=== PATIENT | male | born 1945 | race Caucasian/White ===

== ENCOUNTER 2018-04-01 10:36 | Observation (INO) ==
[2018-04-01] MEDS ORDERED: GADOTERIDOL INJ 20 ML/VIAL IV ONE (10:37)
[2018-04-01] MEDS ORDERED: 0.9 % SODIUM CHLORIDE 1,000 ML IV ONE ×2 (11:07→12:31)
--- NOTE | 2018-04-01 11:52 | XRay Report ---
HISTORY: Dizziness and nausea FINDINGS: The lungs are clear. Heart size is normal. There has been prior coronary artery bypass surgery. No congestive heart failure or pleural effusion are present. There has been little change from prior exam done on 11/02/09 except for the sternotomy IMPRESSION: Normal chest. Interpreted and Authenticated by: Malik Shah 04/01/18
[2018-04-01 12:00] LABS: Basophils # (Auto) 0 K/mcL (0.0-0.3); Basophils % (Auto) 0.5 % (0.0-2.0); Eosinophils # (Auto) 0.2 K/mcL (0.0-0.7); Eosinophils % (Auto) 3.1 % (0.0-7.0); Lymphocytes # (Auto) 2.2 K/mcL (1.5-4.8); Lymphocytes % (Auto) 28.2 % (15.5-49.0); Mean Cell Volume 91.4 fL (80.0-100.0); Mean Corpuscular HGB Conc 33.3 g/dL (31.0-36.0); Mean Corpuscular Hemoglobin 30.4 pg (26.0-34.0); Monocytes # (Auto) 0.7 K/mcL (0.1-0.9); Monocytes % (Auto) 9.2 % (1.0-12.0); Platelet Count 212 K/mcL (140-440); Red Cell Distribution Width 13.9 % (11.5-14.5)
[2018-04-01 12:18] LABS: ALT/SGPT 22 U/l (0-40); Albumin 4.4 gm/dL (3.2-5.2); Albumin/Globulin Ratio 1.3 (1.0-2.3); Alkaline Phosphatase 68 U/L (39-117); Blood Urea Nitrogen 27 mg/dl (8-23)
--- NOTE | 2018-04-01 14:30 | Cat Scan Report ---
History: New onset dizziness and nausea TECHNIQUE: The brain was imaged without contrast at 2.5 mm intervals. The radiation exposure was limited using dose reduction technology. FINDINGS: There are small old lacunar infarcts in the lara radiata bilaterally at the top of the putamen. This is more apparent on the right side than left. Both of these have become more obvious since the prior head CT done on 06/26/17. There are ischemic changes at both sites on the prior study.. No acute infarct is detected. There is no hemorrhage or mass effect. Mild arthritis atrophy is seen both above and below the tentorium. The ventricles are prominent but proportionate to the atrophy. Aside from the mild cerebellar atrophy, posterior fossa is normal. There is opacification of a few ethmoid air cells due to sinusitis. The mastoids are relatively hypoplastic but normally aerated. IMPRESSION: Old lacunar infarcts along the top of the basal ganglia bilaterally Mild atrophy No acute abnormality to explain the patient's symptoms Interpreted and Authenticated by: Malik Shah 04/01/18
[2018-04-01] MEDS ORDERED: 0.9 % SODIUM CHLORIDE 1,000 ML IV SCH (15:15)
--- NOTE | 2018-04-01 15:19 | Emergency Department Note ---
Dizziness HPI - General Chief Complaint: Dizziness Stated Complaint: Dizziness, nausea Time Seen by Provider: 04/01/18 11:06 Source: patient Mode of arrival: ambulatory Limitations: no limitations - History of Present Illness HPI Narrative: The patient is a pleasant 72-year-old male who presents today with complaints of feeling off balance. He reports that it began when he woke up this morning and got out of bed. He did not fall then needed to grab onto things to stay upright. He states that he felt this very couple of days ago as well but it went away on its own. He denies any fevers or chills. Endorses some nausea but no vomiting. Denies any dizziness or vision changes. Denies vertigo-like symptoms. He does state that he had a viral illness in the last couple of weeks and he currently has a resolving shingles infection on his left hand. He had supper last night and kept it down without issue. He denies any shortness of breath or chest pain. No history of stroke. The patient does have a history of hypothyroidism, diabetes, double bypass surgery with 2 heart attacks. - Related Data Allergies Allergy/AdvReac Type Severity Reaction Status Date / Time atenolol [ATENOLOL] Allergy Unknown SHORTNESS Verified 04/01/18 11:47 OF BREATHE Past Medical History - Social History smoking status: Former smoker Physical Exam Limitations: no limitations General appearance: alert, in no apparent distress Head: atraumatic, normocephalic Eye: Present: normal appearance ENT: normal exam, mucous membranes moist, TM's normal bilaterally Neck: Present: normal inspection Chest: Present: normal inspection Respiratory: Present: normal lung sounds bilaterally Cardiovascular: Present: regular rate, normal rhythm Abdominal: Present: soft, normal bowel sounds Neurological: Present: alert, oriented X3 Patient oriented to: Present: person, place, time Speech: Present: fluid speech Cranial nerves: EOM function (II, III, IV, ): Normal, facial sensation (V): Normal, facial palsy (VII): Normal, gag reflex (IX): Normal, spinal accessory function (XI): Normal, tongue deviation (XII): Normal Cerebellar function: ataxic gait Motor strength - LUE: 5/5 Motor strength - RUE: 5/5 Motor strength - LLE: 5/5 Motor strength - RLE: 5/5 Coma Scale Motor Response: Obeys Commands Coma Scale Verbal Response: Oriented Psychiatric: Present: normal affect, normal mood Skin: Present: warm, dry Course Course Narrative: Workup with blood work initially showed an elevated BUN/creatinine slightly elevated creatinine at 1.5. He was given fluid resuscitation and stated that he felt slightly better but upon a walking trial was unable to walk without support. - Reevaluation(s) Reevaluation #1: Patient had a CT head that returned negative for any acute intracranial cause of his symptoms. Spoke to the hospitalist who recommended further imaging including a CT angiogram head and neck. We were unable to perform this due to his creatinine level. Proceeded with MRI head, MRA head and MR I neck with and without. Vital Signs Temperature 96.9 F L 04/01/18 10:38 Pulse Rate 71 04/01/18 10:38 Respiratory Rate 16 04/01/18 10:38 Blood Pressure 149/86 04/01/18 10:38 Pulse Oximetry (%) 97 04/01/18 10:38 Temperature 96.9 F L 04/01/18 10:38 Pulse Rate 69 04/01/18 17:04 Respiratory Rate 14 04/01/18 17:04 Blood Pressure 99/60 04/01/18 17:04 Pulse Oximetry (%) 97 04/01/18 17:04 Dizziness - MDM Narrative Medical decision making narrative: Patient has had an extensive workup cheerleading for infectious causes for his symptoms, neurologic or structural issues. His brain MRI and MRAs were negative for sign of stroke. He does have right-sided mastoiditis seen on imaging but the patient is totally asymptomatic in the room. He is still unable to walk without support but otherwise denies any pain or other concerns. I did speak to the hospitalist who graciously agreed to admit the patient for observation and continued workup. - Lab Data Lab results reviewed: Yes I reviewed the patient's lab results. Result diagrams: 04/01/18 11:35 04/01/18 11:35 Lab Results 04/01/18 04/01/18 04/01/18 Range/Units 11:35 11:35 15:00 WBC 7.7 (4.5-11.0) K/mcL RBC 4.90 (4.50-5.90) M/mcL Hgb 14.9 (13.5-16.5) g/dL Hct 44.8 (41.0-55.0) % POC Hct 38.0 L (41.0-55.0) % MCV 91.4 (80.0-100.0) fL MCH 30.4 (26.0-34.0) pg MCHC 33.3 (31.0-36.0) g/dL RDW 13.9 (11.5-14.5) % Plt Count 212 (140-440) K/mcL MPV 8.9 (7.4-10.4) fL Gran % 59.0 (38.0-78.0) % Lymph % (Auto) 28.2 (15.5-49.0) % Slope % (Auto) 9.2 (1.0-12.0) % Eos % (Auto) 3.1 (0.0-7.0) % Baso % (Auto) 0.5 (0.0-2.0) % Gran # 4.5 (1.8-8.0) K/mcL Lymph # (Auto) 2.2 (1.5-4.8) K/mcL Slope # (Auto) 0.7 (0.1-0.9) K/mcL Eos # (Auto) 0.2 (0.0-0.7) K/mcL Baso # (Auto) 0 (0.0-0.3) K/mcL POC Sodium 142 (133-145) mmol/L Sodium 139 (133-145) mmol/L POC Potassium 4.7 (3.3-5.1) mmol/L Potassium 4.3 (3.3-5.1) mmol/L POC Chloride 107 (96-108) mmol/L Chloride 104 (96-108) mmol/L Carbon Dioxide 24 (22-30) mmol/L POC Total CO2 22 (22-30) mmol/L Anion Gap 11.0 (8-16) POC BUN 25 H (8-23) mg/dl BUN 27 H (8-23) mg/dl Creatinine 1.5 H (0.7-1.2) mg/dl POC Creatinine 1.4 H (0.7-1.2) mg/dl GFR Calculation 45 Glucose 199 H (70-105) mg/dL POC Glucose 154 H (70-105) mg/dL Calcium 9.1 (8.6-10.4) mg/dl POC WB Ioniz Calcium 1.14 L (1.16-1.32) mmol/L Total Bilirubin 0.6 (0.0-1.0) mg/dL AST 26 (0-37) U/l ALT 22 (0-40) U/l Alkaline Phosphatase 68 (39-117) U/L Total Protein 7.7 (5.9-8.4) gm/dL Albumin 4.4 (3.2-5.2) gm/dL Globulin 3.3 (2.2-3.7) gm/dL Albumin/Globulin Ratio 1.3 (1.0-2.3) Disposition Pt seen by CAPTAIN OF GUARDS/PA only: No Disposition: Xfer As Inpt ([facility]) Condition: Fair Referrals: Sam Hughes MD [Primary Care Provider] -
--- NOTE | 2018-04-01 16:53 | Magnetic Resonance Report ---
CLINICAL INFORMATION: New onset dizziness, balance disorder and nausea COMPARISON: Unenhanced head CT on 04/01/18 TECHNIQUE:Sagittal T1 FLAIR, axial T1 FLAIR, T2 FLAIR propeller, T2 propeller, gradient, diffusion, ADC and coronal T2 weighted images were acquired. FINDINGS: The diffusion sequence shows no evidence of an acute infarct. No evidence of tumor or hemorrhage. The T2 and FLAIR sequences reveal several small scattered high signal white matter lesions in the frontal parietal and to a lesser extent the posterior temporal and occipital lobes. These have no mass effect or restricted diffusion. What were thought to represent old lacunar infarcts along the top of the basal ganglia on the preceding head CT represent prominent perivascular lacunar spaces. The basal ganglia are normal. No abnormality is seen in the brainstem or cerebellum. There is very mild generalized atrophy above and below the tentorium. The 7th and 8th cranial nerves are normal. No abnormality is seen in the middle or inner ear structures. There is mild right-sided mastoiditis. Moderate ethmoid sinuses but present with the greatest involvement posteriorly on the right side. There is mild mucosal thickening along the elena of the sphenoid sinus. IMPRESSION: No evidence of acute infarct or intracranial lesion to explain the patient's neurologic symptoms. Mild white matter ischemia or degeneration above the tentorium Mild right mastoiditis and moderate ethmoid sinusitis Dr. Pyle was called with the results Interpreted and Authenticated by: Malik Shah 04/01/18
--- NOTE | 2018-04-01 17:05 | Magnetic Resonance Report ---
History: New neurologic deficit with dizziness loss of balance and nausea TECHNIQUE: The brain was imaged with 3-D [id number]. The neck was imaged following injection of ProHance contrast intravenously. Gated images were acquired and 3-D reconstructions were created of the head and neck separately. FINDINGS: Brain: The right vertebral artery is much smaller than the left and terminates in a large posterior inferior cerebellar artery. This blood also supplies most of blood flow to the inferior portion of the cerebellum. The left vertebral artery is normal and supplies all the blood flow to the vertebral artery. Vertebral artery is normal. There is normal blood flow in the anterior and superior cerebellar arteries. The internal carotids are normal in caliber without evidence of stenosis. The anterior middle cerebral arteries are normal. There is a small patent anterior communicating artery. The posterior communicating arteries are absent or hypoplastic. No intracranial arterial stenosis or occlusion are present. There is no aneurysm or vascular malformation. NECK: The aortic arch and great vessels arising from the aorta are normal. The left vertebral artery is dominant. There is no stenosis in the vertebral arteries. The common and internal carotid arteries normal in caliber. There is a small eccentric plaque at the left carotid bifurcation. This is not causing stenosis. Mild intimal thickening is seen in the proximal left internal carotid. This also is not causing stenosis. The internal and external carotids are otherwise normal. There is no dissection. Subclavian arteries are normal and symmetric. IMPRESSION: Small plaques causing nonhemodynamically significant stenoses around the left carotid bifurcation. Normal intracranial arterial circulation Dr. Pyle was called with the results Interpreted and Authenticated by: Malik Shah 04/01/18
--- NOTE | 2018-04-01 18:20 | Internal Med History&Physical ---
Medical - H&P: HPI Patient information: Note initiated : 04/01/18 at 6:16 pm Service Date, if different from initiated Date: [] Patient: Mati Laurent 72 y/o M admitted on for Dizziness, nausea. Chief Complaint: [] History of present illness: Mr. Laurent is a 72 year old M S, diabetes hypertension dyslipidemia presents to the emergency room for evaluation of dizziness. The patient notes that he was at his baseline usual status until yesterday. He woke up feeling fine however when he tried to go to the bathroom he felt dizzy. He denies any sensation of spinning however notes that he is very unsteady in his gait felt like a ping-pong ball. The patient was not sure about his balance and felt that he could fall down. He also had some nausea accompanied by vomiting. The patient last night had a meal at [employer]. The patient came to the emergency room for further evaluation. In the ER on presentation patient was afebrile with a temperature of 96.9 heart rate of 61 blood pressure 149/86 saturating 100% on room air. Labs show a WBC count of 7.7 hemoglobin of 14.9 platelets 212. Electrolytes show sodium of 139 potassium 4.3 creatinine is 1.5 which is the patient's baseline glucose 199. EKG shows sinus rhythm left axis old anterior and inferior NM low voltage throughout all leads. Chest x-ray is negative for acute changes. Head CT is negative for acute changes. MRI of the head MRA of the neck and head is negative to explain the patient's symptoms. He did have some mastoiditis on the MRI but did not have any symptoms. The patient notes that he was feeling quite unsteady and also had a bit of a double vision while he was down in the ER. He denies any difficulty in swallowing. He denies any symptoms while he is lying in bed, denies any issues with hyperion essbase developer strength or coordination in his hands. He is recovering from herpes zoster, left hand. no other areas involved as per pt The patient is being admitted for observation. All systems: reviewed and no additional remarkable complaints except as stated ( as per HPI rest negative.) Medical - H&P: PMH Medical history: Coronary artery disease status post bypass Hypertension Hyperlipidemia Diabetes Surgical history: Status post CABG Status post tonsillectomy Status post back surgery Family history: reviewed and not pertinent Social history: Lives with Ex-smoker history of [id number] smoking Denies alcohol use Denies decreased substance use Medical - H&P: Meds Allergies Allergy/AdvReac Type Severity Reaction Status Date / Time atenolol [ATENOLOL] Allergy Unknown SHORTNESS Verified 04/01/18 11:47 OF BREATHE Medical - H&P: Exam - Constitutional Vitals: Temp Pulse Resp BP Pulse Ox 96.9 F L 69 14 99/60 97 04/01/18 10:38 04/01/18 17:04 04/01/18 17:04 04/01/18 17:04 04/01/18 17:04 Exam: GENERAL: The patient is a well-developed, well-nourished in no apparent distress. Is alert and oriented x3. VITAL SIGNS: Reviewed and as noted elsewhere. HEENT: Head is normocephalic and atraumatic. Extraocular muscles are intact. Pupils are equal, round, and reactive to light. Nares appeared normal. Mouth appears any without lesions. Mucous membranes are moist. no nystagmus NECK: Normal to inspection, Supple, No lymphadenopathy or thyromegaly. LUNGS: Air entry equal on both sides, no wheezing, crackles or rhonchi noted. No accessory muscles of respiration HEART: Regular rate and rhythm normal, S1 and S2 heard, no Gallop, S3 or Rub Noted, No Gross murmur heard. ABDOMEN: Soft, nontender, and nondistended. Positive bowel sounds. No hepatosplenomegaly was noted. EXTREMITIES: No cyanosis, clubbing, rash, lesions or edema. NEUROLOGIC: Cranial nerves II through XII are grossly intact. Motor and Sensory System Grossly Intact, Cerebellar signs negative, Rhombergs test negative. Patient was able to walk in the ER with me, but felt unsteady but did not loose balance, had slight wide gait. [place]phos much better than his presentation. PSYCHIATRIC: Normal affect, Normal Mood. Appropriate Behavior. SKIN: No ulceration or wounds noted, No jaundice, No rash noted. Medical - H&P: Reslt - Labs CBC & Chem 7: 04/01/18 11:35 04/01/18 11:35 Labs: Short CBC 04/01/18 Range/Units 11:35 WBC 7.7 (4.5-11.0) K/mcL Hgb 14.9 (13.5-16.5) g/dL Hct 44.8 (41.0-55.0) % Plt Count 212 (140-440) K/mcL BMP 04/01/18 11:35 Sodium 139 Potassium 4.3 Chloride 104 Carbon Dioxide 24 BUN 27 H Creatinine 1.5 H Glucose 199 H Calcium 9.1 Liver Function 04/01/18 Range/Units 11:35 Total Bilirubin 0.6 (0.0-1.0) mg/dL AST 26 (0-37) U/l ALT 22 (0-40) U/l Alkaline Phosphatase 68 (39-117) U/L Albumin 4.4 (3.2-5.2) gm/dL Medical - H&P: A/P - Narrative A/P Narrative: A/P Dizziness Nausea DM HTN HLD s/p CABG/ CAD Mastoiditis Plan Etiology of dizziness,? check orthostatic changes, CT head, MRA head neck MRI head are all negative. Exam at bedside is completely benign, he is symptomatic only when upright position and looks around, otherwise no symptoms, does no have classical vertigo symptoms. check ortho static, Nausea? no issues at this time, will start on ppi for now, monitor, IVF, ate at [employer] last night Resume home medications once verified OT/PT eval in AM Start on po levofloxacin for mastoiditis, perhaps this caused some symptoms ? pt has no changes in hearing, no headaches, no tinnitus, but given h/o DM and MRI findings will treat for now. DVT hep sq Diet carb consitent Cardiac
[2018-04-01 19:19] LABS: Appearance,Urine CLEAR; Bacteria,Urine 0 /hpf (0); Bilirubin,Urine NEG (NEG); Color,Urine YELLOW; Glucose,Urine (UA) NEGATIVE (NEG); Leukocyte Esterase,Urine NEG /uL (NEG); Mucus,Urine FEW /hpf (0); Protein,Urine NEG (NEG); Specific Gravity,Urine 1.018 (1.000-1.035); Urine Blood NEG mg/dL (<0.03); Urine Hyaline Cast 16 /lpf (0-2); Urine RBC < 1 /hpf (0-1); Urine Squamous Epithelial Cell 0 /hpf (0-4); Urine WBC < 1 /hpf (0-4); Urobilinogen,Urine NEG (NEG)
[2018-04-01] MEDS ORDERED: DEXTROSE 50% 50 ML VIAL IV PRN (19:20)
[2018-04-01] MEDS ORDERED: ACETAMINOPHEN 325 MG TABLET PO PRN (19:20)
[2018-04-01] MEDS ORDERED: ONDANSETRON 4 MG/2 ML VIAL IV PRN (19:20)
[2018-04-01] MEDS ORDERED: DEXTROSE 31 GM ORAL.SUSP PO PRN (19:20)
[2018-04-01] MEDS ORDERED: NALOXONE HCL 0.4 MG/ML VIAL IV PRN (19:20)
[2018-04-01] MEDS ORDERED: LEVOFLOXACIN 500 MG TABLET PO ONE (19:20)
[2018-04-01] MEDS: 0.9 % SODIUM CHLORIDE 1,000 ML IV SCH (19:58)
[2018-04-01] MEDS: INSULIN LISPRO 1 UNIT/0.01 ML UNIT SQ SCH (20:58)
[2018-04-01] MEDS ORDERED: TAMSULOSIN 0.4 MG CAPSULE PO SCH (21:00)
[2018-04-01] MEDS ORDERED: NYSTATIN CRM 1 DOSE TUBE TOPICAL SCH (21:00)
[2018-04-01] MEDS: PANTOPRAZOLE 40 MG TABLET PO SCH (21:05)
[2018-04-01] MEDS: 0.9 % SODIUM CHLORIDE 10 ML SYRINGE IV SCH (21:05)
[2018-04-01] MEDS: HEPARIN 5,000 UNIT/ML VIAL SQ SCH (21:05)
[2018-04-01 21:29] LABS: Hepatitis B Surface Antibody POSITIVE (NEGATIVE); Hepatitis B Surface Antigen NEGATIVE (NEGATIVE); Hepatitis C Virus Antibody NON REACTIVE (NEGATIVE)
[2018-04-01 22:42] LABS: HIV1/2 AG/AB 4TH Generation NON-REACTIVE
[2018-04-02] MEDS: 0.9 % SODIUM CHLORIDE 1,000 ML IV SCH ×2 (04:54→15:16)
[2018-04-02] MEDS: 0.9 % SODIUM CHLORIDE 10 ML SYRINGE IV SCH ×2 (05:10→15:16)
[2018-04-02 06:20] LABS: Basophils # (Auto) 0 K/mcL (0.0-0.3); Basophils % (Auto) 0.7 % (0.0-2.0); Eosinophils # (Auto) 0.2 K/mcL (0.0-0.7); Eosinophils % (Auto) 2.7 % (0.0-7.0); Granulocytes % (Auto) 65.2 % (38.0-78.0); Lymphocytes # (Auto) 1.5 K/mcL (1.5-4.8); Lymphocytes % (Auto) 22.3 % (15.5-49.0); Mean Cell Volume 91.9 fL (80.0-100.0); Mean Corpuscular HGB Conc 34.2 g/dL (31.0-36.0); Mean Corpuscular Hemoglobin 31.5 pg (26.0-34.0); Monocytes # (Auto) 0.6 K/mcL (0.1-0.9); Monocytes % (Auto) 9.1 % (1.0-12.0); Platelet Count 184 K/mcL (140-440); RBC 4.06 M/mcL (4.50-5.90); Red Cell Distribution Width 14.1 % (11.5-14.5)
[2018-04-02] MEDS: PANTOPRAZOLE 40 MG TABLET PO SCH (07:18)
[2018-04-02 07:44] LABS: ALT/SGPT 17 U/l (0-40); Albumin 3.7 gm/dL (3.2-5.2); Albumin/Globulin Ratio 1.5 (1.0-2.3); Alkaline Phosphatase 58 U/L (39-117); Bilirubin,Direct < 0.2 mg/dL (0.0-0.3); Blood Urea Nitrogen 18 mg/dl (8-23); Gamma Glutamyl Transpeptidase 15 U/L (8-61); Uric Acid 6.7 mg/dL (2.5-8.0)
[2018-04-02] MEDS ORDERED: POTASSIUM CHLORIDE 10 MEQ TABLET PO SCH (08:00)
[2018-04-02] MEDS: INSULIN LISPRO 1 UNIT/0.01 ML UNIT SQ SCH ×2 (08:42→12:54)
[2018-04-02] MEDS: HEPARIN 5,000 UNIT/ML VIAL SQ SCH (08:44)
[2018-04-02] MEDS ORDERED: SPIRONOLACTONE 25 MG TABLET PO SCH (09:00)
[2018-04-02] MEDS ORDERED: FUROSEMIDE 20 MG TABLET PO SCH (09:00)
[2018-04-02] MEDS ORDERED: DOCUSATE SODIUM 100 MG CAPSULE PO SCH (09:00)
[2018-04-02] MEDS ORDERED: METOPROLOL SUCCINATE 50 MG TAB.XL.24H PO SCH (09:00)
[2018-04-02] MEDS ORDERED: ASPIRIN 81 MG TAB.CHEW PO SCH (09:00)
--- NOTE | 2018-04-02 10:15 | Internal Med Progress Note ---
Medical - PN: Subj Patient information: Note initiated : 04/02/18 at 10:13 am Service Date, if different from initiated Date: [] Patient: Mati Laurent 72 y/o M admitted on 04/01/18 for Dizziness, nausea. Chief Complaint: [] Interval history: Mr. Laurent is a 72 year old M S, diabetes hypertension dyslipidemia presents to the emergency room for evaluation of dizziness. The patient notes that he was at his baseline usual status until yesterday. He woke up feeling fine however when he tried to go to the bathroom he felt dizzy. He denies any sensation of spinning however notes that he is very unsteady in his gait felt like a ping-pong ball. The patient was not sure about his balance and felt that he could fall down. He also had some nausea accompanied by vomiting. The patient last night had a meal at [employer]. The patient came to the emergency room for further evaluation. In the ER on presentation patient was afebrile with a temperature of 96.9 heart rate of 61 blood pressure 149/86 saturating 100% on room air. Labs show a WBC count of 7.7 hemoglobin of 14.9 platelets 212. Electrolytes show sodium of 139 potassium 4.3 creatinine is 1.5 which is the patient's baseline glucose 199. EKG shows sinus rhythm left axis old anterior and inferior GA low voltage throughout all leads. Chest x-ray is negative for acute changes. Head CT is negative for acute changes. MRI of the head MRA of the neck and head is negative to explain the patient's symptoms. He did have some mastoiditis on the MRI but did not have any symptoms. The patient notes that he was feeling quite unsteady and also had a bit of a double vision while he was down in the ER. He denies any difficulty in swallowing. He denies any symptoms while he is lying in bed, denies any issues with senior communications specialist strength or coordination in his hands. He is recovering from herpes zoster, left hand. no other areas involved as per pt The patient is being admitted for observation. 04/02 Patient seen examined, no acute overnight events, no acute events on telemetry. Feeling much better, tolerating p.o. diet very well. Work with physical therapy had just one episode of balance issue otherwise no complaints. Orthostatics mildly positive from lying to sitting position but normal on standing. Patient uses walker and cane at home does have these. Will watch and see how he does today could be discharged this afternoon if remains stable Pertinent ROS: Denies headache, dizziness Denies chest pain, palpitations Denies cough or shortness of breath Denies abdominal pain, nausea or vomiting. - Constitutional Vitals: Vital Signs Temp Pulse Resp BP Pulse Ox 98.5 F 62 16 135/70 98 04/02/18 04:01 04/02/18 04:01 04/02/18 04:01 04/02/18 04:01 04/02/18 04:01 Period Temp Pulse Resp BP Sys/Hardy Pulse Ox Last 24 Hr 96.9 F-98.5 F 59-79 13-22 83-149/60-86 97-100 Intake and Output 04/01/18 04/02/18 04/02/18 21:59 05:59 13:59 Intake Total 1000 / 1000 2029 360 / 360 Output Total 300 / 300 550 / 550 525 / 525 Balance 700 / 700 1480 / 1480 -165 / -165 Weight 182 lb 12.8 oz Intake & Output: Intake & Output 04/01/18 04/02/18 04/02/18 21:59 05:59 13:59 Intake Total 1000 / 1000 2029 360 / 360 Output Total 300 / 300 550 / 550 525 / 525 Balance 700 / 700 1480 / 1480 -165 / -165 Weight 182 lb 12.8 oz Intake: IV 1000 / 1000 1880 / 1880 Sodium Chloride 0.9% 1,000 ml @ 1000 / 1000 893 / 893 100 mls/hr IV .Q10H [facility] Rx#: [id number] Oral 150 / 150 360 / 360 Output: Void Amount 300 / 300 550 / 550 525 / 525 Other: Meal snack Breakfast Percent of Meal Consumed 100% 75% Feeding Ability Assist with Tray Set Up Independent Urine Appearance Clear Clear Urine Color Dark Yellow Dark Yellow Urine Odor Strong Strong # Voids 1 Exam: Constitutional; Afebrile, cooperative, alert, not in distress. Respiratory system: Air Entry equal on both sides, No crackles or wheezing, no rhonchi. CVS- Rate rhythm regular, S1,S2 heard, no gallop, no rub. Abdomen- Soft nontender abdomen, no organomegaly, no tenderness, no guarding or rigidity, SEED EXPERT- AOOx3, moving all extremities, no gross focal deficit noted. Medical - PN: Obj Da - Labs CBC & Chem 7: 04/02/18 03:45 04/02/18 03:45 Labs: Abnormal Lab Results 04/02/18 04/02/18 04/01/18 03:45 03:45 15:00 RBC 4.06 L Hgb 12.8 L Hct 37.3 L POC Hct 38.0 L Carbon Dioxide 21 L POC BUN 25 H BUN Creatinine POC Creatinine 1.4 H Glucose 135 H POC Glucose 154 H Calcium 8.5 L POC WB Ioniz Calcium 1.14 L Phosphorus 2.3 L Triglycerides 165 H Hyaline Casts Hep Bs Antibody 04/01/18 04/01/18 04/01/18 12:00 11:35 11:35 RBC Hgb Hct POC Hct Carbon Dioxide POC BUN BUN 27 H Creatinine 1.5 H POC Creatinine Glucose 199 H POC Glucose Calcium POC WB Ioniz Calcium Phosphorus Triglycerides Hyaline Casts 16 H Hep Bs Antibody Positive A Meds: Medications Acetaminophen (Tylenol) 650 mg PO Q6HP PRN PRN Reason: PAIN/FEVER > 101 Aspirin (Aspirin) 81 mg PO DAILY [facility] Last Admin: 04/02/18 08:43 Dose: 81 mg Dextrose (Dextrose 50%) 0 ml IV UD PRN PRN Reason: Hypoglycemia Diagnostic Test (Pha) (Accu-Chek) 1 each FS ACHS [facility] Last Admin: 04/02/18 07:19 Dose: 1 each Docusate Sodium (Colace) 100 mg PO DAILY [facility] Last Admin: 04/02/18 08:44 Dose: 100 mg Furosemide (Lasix) 20 mg PO DAILY [facility] Last Admin: 04/02/18 08:43 Dose: 20 mg Glucose (Insta-Glucose) 15 gm PO PRN PRN PRN Reason: Hypoglycemia Heparin Sodium (Porcine) (Heparin) 5,000 unit SQ Q12 [facility] Last Admin: 04/02/18 08:44 Dose: 5,000 unit Sodium Chloride (Sodium Chloride 0.9%) 1,000 mls @ 100 mls/hr IV .Q10H [facility] Last Admin: 04/02/18 04:54 Dose: 100 mls/hr Insulin Human Lispro (Humalog) 0 unit SQ ACHS [facility]; Protocol Last Admin: 04/02/18 08:42 Dose: 1 unit Levofloxacin (Levaquin) 250 mg PO DAILY [facility] Metoprolol Succinate (Toprol Xl) 50 mg PO DAILY [facility] Last Admin: 04/02/18 08:44 Dose: 50 mg Naloxone HCl (Narcan) 0.1 mg IV Q2MIN PRN PRN Reason: Opiate Reversal Ondansetron HCl (Zofran) 4 mg IV Q4HP PRN PRN Reason: Nausea And Vomiting Pantoprazole Sodium (Protonix) 40 mg PO QAMAC [facility] Last Admin: 04/02/18 07:18 Dose: 40 mg Potassium Chloride (Kdur) 10 meq PO BIDCC [facility] Last Admin: 04/02/18 08:43 Dose: 10 meq Sodium Chloride (Saline Flush) 10 ml IV Q8 [facility] Last Admin: 04/02/18 05:10 Dose: Not Given Spironolactone (Aldactone) 25 mg PO DAILY [facility] Last Admin: 04/02/18 08:44 Dose: 25 mg Tamsulosin HCl (Flomax) 0.4 mg PO HS [facility] Last Admin: 04/02/18 00:21 Dose: 0.4 mg Medical - PN: A/P - Time Spent With Patient Total time spent is greater than 50% in coordination of care (as documented) at patient's floor/unit and/or counseling patient: - Narrative A/P Narrative: A/P Dizziness Nausea DM HTN HLD s/p CABG/ CAD Mastoiditis Plan Etiology of dizziness,? mild orthostatic positive, neg events on tele, clinically much improved continue abx for mastoiditis if remains stable, will d/c home today OT/PT eval on po levofloxacin for mastoiditis, perhaps this caused some symptoms ? pt has no changes in hearing, no headaches, no tinnitus, but given h/o DM and MRI findings will treat for now. DVT hep sq Diet carb consitent Cardiac Medical - PN: Qual - VTE Deep Vein Thrombosis/Pulmonary Embolism Present on Admission: No
[2018-04-02] MEDS ORDERED: LEVOFLOXACIN 500 MG TABLET PO SCH (12:00)
--- NOTE | 2018-04-02 15:29 | Discharge Summary ---
Medical - DS: Prov Patient information: Note initiated : 04/02/18 at 3:26 pm Service Date, if different from initiated Date: [] Patient: Mati Laurent 72 y/o M admitted on 04/01/18 for Dizziness, nausea. Chief Complaint: [] Date of admission: 04/01/18 19:14 Discharge date: 04/02/18 Primary care physician: Sam Hughes Consults: 04/01/18 17:37 Consult to Physician [CONS] Stat Comment: Consulting Provider: Marychuy Ferguson Reason For Exam: Physician to Consult Discharging clinician: Marychuy Ferguson Medical - DS: Meds - Discharge Medications Prescriptions: Levofloxacin [Levaquin] 500 mg PO DAILY #5 tab Active and Home Medications: Home Medications Accu-Chek 1 each FS HS 04/01/18 [History Confirmed 04/01/18 Last Taken 03/31/18 21:00] Aspirin [Melba Chewable Aspirin] 81 mg PO DAILY 04/01/18 [History Confirmed Last Taken 03/31/18 09:00] Atorvastatin [Lipitor] 20 mg PO QPM 04/01/18 [History Confirmed 04/01/18 Last Taken 03/31/18 19:00] Docusate Sodium [Colace] 100 mg PO DAILY 04/01/18 [History Confirmed 04/02/18 Last Taken 03/31/18 19:00] Effient 10 mg PO DAILY 04/01/18 [History Confirmed 04/01/18 Last Taken 03/31/18 08:00] Furosemide [Lasix] 20 mg PO DAILY 04/01/18 [History Confirmed 04/01/18 Last Taken 03/31/18 09:00] Glucosamine/D3/Boswellia Olesya [Glucosamine Complex Tablet] 1 tab PO BID [History Confirmed 04/01/18 Last Taken 03/31/18 19:00] Insulin Detemir [Levemir] 30 unit SQ BID 04/01/18 [History Confirmed 04/01/18 Last Taken 03/31/18 19:00] Insulin Lispro [HumaLOG] 1 unit SQ QHS 04/01/18 [History Confirmed 04/01/18 Last Taken 03/31/18 21:00] Insulin Lispro [HumaLOG] 10 unit SQ AC 04/01/18 [History Confirmed 04/01/18 Last Taken 03/31/18 19:00] Klor-Con 10 10 meq PO BID 04/01/18 [History Confirmed 04/01/18 Last Taken 19:00] Levothyroxine [Synthroid] 50 mcg PO DAILY 04/01/18 [History Confirmed 04/01/18 Last Taken 03/31/18 08:00] Lisinopril [Zestril] 10 mg PO QAM 04/01/18 [History Confirmed 04/01/18 Last Taken 03/31/18 08:00] Metoprolol Succinate [Toprol Xl] 50 mg PO DAILY 04/01/18 [History Confirmed Last Taken 03/31/18 08:00] Multivit-Min/Iron/Folic Acid/K [Adults Multivitamin Tablet] 1 tab PO QAM [History Confirmed 04/01/18 Last Taken 03/31/18 08:00] Mv-Min/FA/Vit K/Lycop/Lut/Zeax [Ocuvite Eye Plus Multi Tablet] 1 tab PO QAM [History Confirmed 04/01/18 Last Taken 03/31/18 08:00] Spironolactone [Aldactone] 12.5 mg PO QPM 04/01/18 [History Confirmed 04/01/18 Last Taken 03/31/18 19:00] Tamsulosin [Flomax] 0.4 mg PO QAM 04/01/18 [History Confirmed 04/01/18 Last Taken 03/31/18 08:00] Ubidecarenone [Coq10] 100 mg PO QAM 04/01/18 [History Confirmed 04/01/18 Last Taken 03/31/18 08:00] Vitamin D3 2,000 unit PO QAM 04/01/18 [History Confirmed 04/01/18 Last Taken 08:00] Medical - DS: Hosp Hospital course: MMr. Laurent is a 72 year old M S, diabetes hypertension dyslipidemia presents to the emergency room for evaluation of dizziness. The patient notes that he was at his baseline usual status until yesterday. He woke up feeling fine however when he tried to go to the bathroom he felt dizzy. He denies any sensation of spinning however notes that he is very unsteady in his gait felt like a ping-pong ball. The patient was not sure about his balance and felt that he could fall down. He also had some nausea accompanied by vomiting. The patient last night had a meal at [employer] The patient came to the emergency room for further evaluation. In the ER on presentation patient was afebrile with a temperature of 96.9 heart rate of 61 blood pressure 149/86 saturating 100% on room air. Labs show a WBC count of 7.7 hemoglobin of 14.9 platelets 212. Electrolytes show sodium of 139 potassium 4.3 creatinine is 1.5 which is the patient's baseline glucose 199. EKG shows sinus rhythm left axis old anterior and inferior MO low voltage throughout all leads. Chest x-ray is negative for acute changes. Head CT is negative for acute changes. MRI of the head MRA of the neck and head is negative to explain the patient's symptoms. He did have some mastoiditi/ethomoiditis on the MRI but did not have any symptoms. The patient notes that he was feeling quite unsteady and also had a bit of a double vision while he was down in the ER. He denies any difficulty in swallowing. 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 He is recovering from herpes zoster, left hand. no other areas involved as per pt The patient is being admitted for observation. The patient was hydrated well, and monitored overnight, the patient had no acute events on tele, he did well this AM with PT and had no more symptoms, showed that he was back to baseline and eager to go home. Will be discharged with oral levoflloxacin for possible mastoidits and ethmoidal sinusitis as noted on the MRI (h/o DM ). The pt will take rest of his medications as prescribed by his PCP, no changes made to chr home medications. Discharge diagnosis: dizziness, ethomoid/mastoid sinusitis - Time Spent with Patient Total time spent providing and/or coordinating discharge services: Greater than 30 minutes Medical - DS: Exam - Constitutional Vitals: Vital Signs Temp Pulse Pulse Pulse Pulse Pulse Resp 04/02/18 12:58 97.5 F 18 04/02/18 09:12 04/02/18 08:00 98.4 F 04/02/18 04:01 98.5 F 62 16 04/02/18 02:03 62 04/02/18 00:27 65 04/02/18 00:01 98.5 F 69 16 04/01/18 22:29 68 18 22:01 73 18 21:01 66 18 20:52 67 18 20:50 79 18 20:49 71 04/01/18 20:03 66 18 19:45 98.3 F 16 18 19:39 98.3 F 66 16 18 19:20 98.3 F 71 74 77 16 04/01/18 19:14 69 14 04/01/18 17:04 69 14 04/01/18 15:35 64 22 04/01/18 15:30 63 13 BP BP BP BP BP Pulse Ox 04/02/18 12:58 128/77 99 04/02/18 09:12 126/66 04/02/18 08:00 04/02/18 04:01 135/70 98 04/02/18 02:03 04/02/18 00:27 98 04/02/18 00:01 124/65 97 18 22:29 99 04/01/18 22:01 125/61 99 18 21:01 131/68 99 18 20:52 132/68 100 18 20:50 135/67 99 18 20:49 116/63 100 18 20:03 132/71 100 18 19:45 128/69 100 18 19:39 128/69 100 18 19:20 128/69 132/68 116/63 135/67 100 18 19:14 116/70 97 18 17:04 99/60 97 18 15:35 100 18 15:30 116/70 100 Intake and Output 04/02/1804/02/04/02/18 05:59 13:59 21:59 Intake Total 2029 / 2029 360 / 360 1000 / 1000 Output Total 550 / 550 1025 / 1025 Balance 1480 / 1480 -665 / -665 1000 / 1000 Intake: IV 1880 / 1880 1000 / 1000 Sodium Chloride 0.9% 1,000 ml @ 893 / 893 1000 / 1000 100 mls/hr IV .Q10H [facility] Rx#: [id number] Oral 150 / 150 360 / 360 Output: Void Amount 550 / 550 1025 / 1025 Other: Meal Breakfast Percent of Meal Consumed 75% Feeding Ability Independent Urine Appearance Clear Urine Color Dark Yellow Urine Odor Strong # Voids 1 Weight 182 lb 12.8 oz Patient Weight 04/03/18 05:59 Weight 182 lb 12.8 oz Additional comments: Constitutional; Afebrile, cooperative, alert, not in distress. Eyes- No icterus, , No periorbital swelling Ears- Ext ear normal, hearing normal to conversation. Neck- Midline trachea, supple Respiratory system: Air Entry equal on both sides, No crackles or wheezing, no rhonchi. CVS- Rate rhythm regular, S1,S2 heard, no gallop, no rub. 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 Medical - DS: Data Labs on day of discharge: Labs from last 24 hours 04/02/18 04/02/18 04/01/18 03:45 03:45 12:00 WBC 6.9 RBC 4.06 L Hgb 12.8 L Hct 37.3 L MCV 91.9 MCH 31.5 MCHC 34.2 RDW 14.1 Plt Count 184 MPV 9.3 Gran % 65.2 Lymph % (Auto) 22.3 Borden % (Auto) 9.1 Eos % (Auto) 2.7 Baso % (Auto) 0.7 Gran # 4.5 Lymph # (Auto) 1.5 [place] # (Auto) 0.6 Eos # (Auto) 0.2 Baso # (Auto) 0 Sodium 141 Potassium 4.2 Chloride 107 Carbon Dioxide 21 L Anion Gap 13.0 BUN 18 Creatinine 1.1 GFR Calculation 66 Glucose 135 H Uric Acid 6.7 Calcium 8.5 L Phosphorus 2.3 L Magnesium 1.6 Total Bilirubin 0.6 Direct Bilirubin < 0.2 GGT 15 AST 22 ALT 17 Alkaline Phosphatase 58 Lactate Dehydrogenase 161 Total Protein 6.1 Albumin 3.7 Globulin 2.4 Albumin/Globulin Ratio 1.5 Triglycerides 165 H Vitamin B12 474.0 TSH Urine Color Yellow Urine Appearance Clear Urine pH 5.0 Ur Specific [place] 1.018 Urine Protein Neg Urine Glucose (UA) Negative Urine Ketones Neg Urine Occult Blood Neg Urine Nitrate Neg Urine Bilirubin Neg Urine Urobilinogen Neg Ur Leukocyte Esterase Neg Urine RBC < 1 Urine WBC < 1 Ur Squamous Epith Cells 0 Urine Bacteria 0 Hyaline Casts 16 H Urine Mucus Few Ur Culture Indicated? No Hep Bs Antigen Hep Bs Antibody Hepatitis C Antibody HIV 1&2 Ag/Ab, 4th Gen 04/01/18 04/01/18 11:35 11:35 WBC RBC Hgb Hct MCV MCH MCHC RDW Plt Count MPV Gran % Lymph % (Auto) [place] % (Auto) Eos % (Auto) Baso % (Auto) Gran # Lymph # (Auto) [place] # (Auto) Eos # (Auto) Baso # (Auto) Sodium Potassium Chloride Carbon Dioxide Anion Gap BUN Creatinine GFR Calculation Glucose Uric Acid Calcium Phosphorus Magnesium Total Bilirubin Direct Bilirubin GGT AST ALT Alkaline Phosphatase Lactate Dehydrogenase Total Protein Albumin Globulin Albumin/Globulin Ratio Triglycerides Vitamin B12 TSH 1.33 Urine Color Urine Appearance Urine pH Ur Specific [place] Urine Protein Urine Glucose (UA) Urine Ketones Urine Occult Blood Urine Nitrate Urine Bilirubin Urine Urobilinogen Ur Leukocyte Esterase Urine RBC Urine WBC Ur Squamous Epith Cells Urine Bacteria Hyaline Casts Urine Mucus Ur Culture Indicated? Hep Bs Antigen Negative Hep Bs Antibody Positive A Hepatitis C Antibody Non reactive HIV 1&2 Ag/Ab, 4th Gen Non-reactive Medical - DS: A/P - Patient/Caregiver Discharge Instructions Activity: ambulate only with your walker, increase activity as tolerated Diet: Cardiac Additional Instructions: Please take levofloxacin 500 mg daily for total of 5 more days. Go back to the emergency room if you notice any fever chills chest pain or any other acute concerning symptom. I have not made changes history of chronic home medication list list take them as before as prescribed. Follow-up with your primary care provider in 1 week Prescriptions: Levofloxacin [Levaquin] 500 mg PO DAILY #5 tab - Follow up Plan Follow up with: Sam Hughes MD [Primary Care Provider] - Disposition: Home, Self-Care Prognosis: Fair Rehab Potential: Fair I certify that the patient requires SNF services: No Overall status at discharge: patient is progressing back to baseline Medical - DS: Qual - VTE Deep Vein Thrombosis/Pulmonary Embolism Present on Admission: No
[2018-04-02] MEDS ORDERED: INSULIN DETEMIR 30 UNIT SQ SCH (21:00)
[2018-04-02] MEDS ORDERED: KLOR CON PO SCH (21:00)
[2018-04-02] MEDS ORDERED: INSULIN GLARGINE, HUMAN 1 UNIT/0.01 ML SQ SCH (21:00)
[2018-04-02] MEDS ORDERED: ATORVASTATIN 20 MG TABLET PO SCH (21:00)
[2018-04-03] MEDS ORDERED: LEVOTHYROXINE 50 MCG TABLET PO SCH (07:30)
[2018-04-03] MEDS ORDERED: MULTIVIT,THER IRON,CA,FA & MIN 1 TABLET PO SCH (09:00)
[2018-04-03] MEDS ORDERED: DOCUSATE SODIUM 100 MG CAPSULE PO SCH (09:00)
[2018-04-03] MEDS ORDERED: LISINOPRIL 10 MG TABLET PO SCH (09:00)
== END 2018-04-02 16:30 | disposition home or self-care (01) ==
LOC: ICU 10:36 → ED 10:36 → ICU 19:14
PROVIDERS: ADMIT Internal Medicine; ATTEND Internal Medicine
CPT/HCPCS: 80047; 85014; 87389; 97161; 99217; 99219; A9576; G0378; G8978; G8979; J1644; J1817; J7030